=== PATIENT | male | born 1950 | race Caucasian/White ===

== ENCOUNTER 2017-05-07 09:01 | Day surgery (SDC) | payer MEDICARE, OTHER ==
[2017-05-07] MEDS ORDERED: LIDOCAINE 2% MDV (20MG/ML) 20ML VIAL IV ONE (14:00)
[2017-05-07] MEDS ORDERED: PROPOFOL 10 MG/ML VIAL IV ONE (14:00)
[2017-05-07] MEDS ORDERED: MIDAZOLAM HCL 2MG/2ML VIAL IV ONE (14:00)
--- NOTE | 2017-05-11 17:20 | Operative Note ---
DATE OF SERVICE: 05/07/2017. DATE OF SURGERY: 05/07/2017. REQUESTING PROVIDER: Roland Corona MD. SURGEON: Nomi Cui MD. OPERATION: COLONOSCOPY. INDICATION FOR PROCEDURE: This is a 66-year-old male with history of colon polyps, who presented for surveillance colonoscopy. POSTOPERATIVE DIAGNOSES:1. Normal colon. 2. Mildly enlarged prostate gland. SEDATION: Sedation is per Anesthesia. Pulse oximetry was monitored throughout the duration of the procedure to maintain O2 saturation of 90% or greater. Supplemental oxygen was administered via nasal cannula. Cardiac and vital signs were monitored throughout the duration of the procedure and they were stable. PROCEDURE: The procedure of colonoscopy, risks and alternatives to the procedure, including the risks of bleeding and perforation among others, were explained to the patient. He voiced understanding and agrees to have the procedure done. Physical examination was performed and the patient was found stable for sedation. The patient was then placed in the left lateral position and sedation was initiated. Digital rectal exam was performed and showed small external hemorrhoids with no palpable rectal masses. An Olympus [id number] colonoscope was then inserted into the rectum and under direct visualization was advanced to the cecum without difficulty. The ileocecal valve and appendiceal orifice were identified and photographed. The colonic mucosa was carefully examined upon introduction of the colonoscope. There were no lesions noted. The colonoscope was then withdrawn very carefully, re-examining the colonic mucosal surfaces. No lesions were noted. In the rectum, retroflexion maneuver was performed and grade 1 internal hemorrhoids were noted. The colonoscope was then withdrawn, and the procedure was terminated. The patient tolerated the procedure well, without immediate complications. He remained with stable vital signs and was transferred into the recovery room. PLAN AND RECOMMENDATIONS: 1. Patient should be on a high-fiber diet. 2. He is to have a repeat colonoscopy for surveillance in 5 years.Thank you for allowing me to participate in the care of your patient. Nomi Cui MD CC: MD Nomi Luque MD MTDD
== END 2017-05-07 11:05 | disposition home or self-care (01) ==
LOC: HOP 09:01
PROVIDERS: ATTEND Internal Medicine Gastroenterology
DX: Z09 Encounter for follow-up examination after completed treatment for conditions other than malignant neoplasm (principal); K63.5 Polyp of colon; N40.0 Benign prostatic hyperplasia without lower urinary tract symptoms
CPT/HCPCS: 00810; G0121

== ENCOUNTER 2017-08-27 19:58 | Emergency (ER) | payer MEDICARE, OTHER ==
--- NOTE | 2017-08-27 20:15 | Emergency Department Record ---
History of Present Illness - General Chief complaint: Male Urogenital Problem Stated complaint: UNABLE TO URINATE Source: Patient Mode of Arrival: Ambulatory Limitations: No limitations - History of Present Illness Initial comments: 67 yo male presents to ED for evaluation of urinary retention symptoms. Patient reports that he had a agudelo catheter placed 2 days ago for urinary retention symptoms, but had it removed by Dr. Lacey this afternoon in the office. Patient reports that he was able to urinate immediately following removal, however has been unable to urinate in several hours. Patient also reports that he has been taking Bactrim prescribed for a previous UTI. MD Complaint: Other Onset/Timin -: Hour(s) Location: Abdomen Radiation: None Severity: Moderate Quality: Aching Consistency: Constant Improves with: None Worsens with: None Other Reports: Denies other symptoms - Related Data Previous Rx's Medication Instructions Recorded Omeprazole [Prilosec] 20 mg PO DAILY #20 brian. 06/06/16 Allergies Allergy/AdvReac Type Severity Reaction Status Date / Time naproxen [From Naprosyn] AdvReac NAUSEA Verified 06/29/16 15:37 Review of Systems Constitutional: Denies: Chills, Fever, Malaise, Night sweats Eyes: Denies: Eye discharge, Eye pain ENT: Denies: Congestion, Ear pain, Epistaxis Respiratory: Denies: Cough, Dyspnea Cardiovascular: Denies: Chest pain, Dyspnea on exertion Endocrine: Denies: Fatigue, Heat or cold intolerance Gastrointestinal: Reports: Abdominal pain. Denies: Nausea, Vomiting Genitourinary: Reports: Retention. Denies: Testicular pain, Testicular mass Musculoskeletal: Denies: Arthralgia, Back pain, Gout, Joint swelling Skin: Denies: Bruising, Change in color Neurological: Denies: Abnormal gait, Confusion, Headache, Seizure Psychiatric: Denies: Anxiety Hematological/Lymphatic: Denies: Anemia, Blood Clots Past Medical History - SOCIAL HISTORY Smoking Status: Former smoker - RESPIRATORY Hx Respiratory Disorders: Yes Hx Asthma: Yes Hx COPD: Yes Hx Pneumonia: Yes Hx Sleep Apnea: Yes Hx of CPAP: Yes (NIGHTLY USE) - CARDIOVASCULAR Hx Cardio Disorders: Yes Hx Hypertension: Yes - NEURO Hx Neuro Disorders: No - GI Hx GI Disorders: Yes Hx Reflux: Yes Hx of Polyps: Yes (COLON BENIGN) - Hx Genitourinary Disorders: Yes Hx Bladder Problem: Yes (cancer) Hx Prostate Problems: Yes (CANCER) Comment:: DR. LACEY - ENDOCRINE Hx Endocrine Disorders: No - MUSCULOSKELETAL Hx Musculoskeletal Disorders: Yes Hx Arthritis: Yes - PSYCH Hx Psych Problems: Yes Hx Anxiety: Yes Hx Depression: Yes - HEMATOLOGY/ONCOLOGY Hx Hematology/Oncology Disorders: Yes Hx Cancer: Yes (bladder/PROSTATE) Hx Chemotherapy: No Hx Radiation Therapy: No Hx Blood Transfusions: Yes Hx Blood Transfusion Reaction: No Comment:: TURBT Physical Exam - General General Appearance: Alert, Oriented x3, Cooperative, Moderate distress Limitations: No limitations - Head Head exam: Atraumatic, Normocephalic, Normal inspection Head exam detail: negative: Abrasion, Contusion, Modi's sign, General tenderness, Hematoma, Laceration - Eye Eye exam: Normal appearance. negative: Conjunctival injection, Periorbital swelling, Periorbital tenderness, Scleral icterus - ENT Ear exam: negative: Auricular hematoma, Auricular trauma Nasal Exam: negative: Active bleeding, Discharge, Dried blood, Foreign body Mouth exam: negative: Drooling, Laceration, Muffled voice, Tongue elevation - Neck Neck exam: Normal inspection. negative: Meningismus, Tenderness - Respiratory Respiratory exam: Normal lung sounds bilaterally. negative: Rales, Respiratory distress, Rhonchi, Stridor - Cardiovascular Cardiovascular Exam: Regular rate, Normal rhythm, Normal heart sounds - GI/Abdominal GI/Abdominal exam: Soft, Tenderness (TTP to the suprapubic region on examination ). negative: Rebound, Rigid - Rectal Rectal exam: Deferred - exam: Deferred - Extremities Extremities exam: Normal inspection. negative: Calf tenderness, Pedal edema, Tenderness - Back Back exam: Denies: CVA tenderness (R), CVA tenderness (L) - Neurological Neurological exam: Alert, Normal gait, Oriented X3 - Psychiatric Psychiatric exam: Normal affect, Normal mood - Skin Skin exam: Normal color. negative: Abrasion Type of lesion: negative: abrasion Course Vital Signs 08/27/17 20:08 Temperature 99.0 F Pulse Rate [ 66 Pulse Ox Probe] Respiratory 18 Rate Blood Pressure 165/72 [Left Arm] Pulse Ox 100 - Reevaluation(s) Reevaluation #1: 08/27/17 20:44 Agudelo placed by nursing staff, patient reassessed and reports that he is feeling much better. Awaiting UA. Reevaluation #2: 08/27/17 20:55 UA reviewed: > 50 RBCs 3-5 WBCs Few bacteria Patient was instructed to continue Bactrim as prescribed, and the patient appears stable for discharge at this time with his Agudelo and leg bag in place. Disposition Disposition: Discharge Clinical Impression: Urinary retention Disposition: Home, Self-Care Condition: (2) Stable Instructions: Urinary Retention in Men (ED) Additional Instructions: Return to ED if your symptoms worsen or if you have any concerns. Follow-up with Dr. Lacey in 3-5 days as directed. Continue Bactrim as directed. Forms: Patient Portal Access Time of Disposition: 20:56 Quality - Quality Measures Quality Measures: N/A - Blood Pressure Screening Does Patient Have Any of the Following: Active Dx of HTN Blood Pressure Classification: Hypertensive Reading Systolic Measurement: 165 Diastolic Measurement: 72 Screening for High Blood Pressure: Patient Exclusion, Hx of HTN [G9744]
[2017-08-27] MEDS ORDERED: LIDOCAINE UROJECT 10 ML APPL MM ONE (20:43)
[2017-08-27 20:47] LABS: URINE BILIRUBIN NEGATIVE (NEGATIVE); URINE BLOOD LARGE (NEGATIVE); URINE COLOR YELLOW; URINE GLUCOSE (UA) NEGATIVE (NEGATIVE); URINE KETONE NEGATIVE (NEGATIVE); URINE LEUKOCYTE ESTERASE TRACE (NEGATIVE); URINE NITRITE NEGATIVE (NEGATIVE); URINE PROTEIN TRACE (NEGATIVE); URINE UROBILINOGEN 0.2 E.U./dL (0.20 - 1.00)
[2017-08-27 20:48] LABS: URINE APPEARANCE CLOUDY
[2017-08-27 20:53] LABS: URINE RBC >50 (NONE SEEN)
[2017-08-27 20:54] LABS: URINE BACTERIA FEW; URINE EPITHELIAL CELLS 0 - 2 (FEW)
== END 2017-08-27 21:15 | disposition home or self-care (01) ==
LOC: ER 19:58
DX: R33.9 Retention of urine, unspecified (principal); Z85.46 Personal history of malignant neoplasm of prostate
CPT/HCPCS: 81001; 99282

== ENCOUNTER 2017-08-30 20:51 | Emergency (ER) | payer MEDICARE, OTHER ==
--- NOTE | 2017-08-30 21:02 | Emergency Department Record ---
History of Present Illness - General Chief complaint: Male Urogenital Problem Stated complaint: CANNOT URINATE Time Seen by Provider: 08/30/17 20:55 Source: Patient, Family Mode of Arrival: Ambulatory Limitations: No limitations - History of Present Illness Initial comments: 67 yo male returns to the ER after having a agudelo catheter removed today by his urologist and now unable to urinate. He had bladder surgery last week. 4 days ago he had the same issue after agudelo removal in the office by his urologist. No fever. Last voided a small amount 3 hours ago. MD Complaint: Dysuria -: Hour(s) Location: Abdomen Radiation: None Severity: Severe Quality: Aching Consistency: Constant Improves with: None Worsens with: Other (retention) Indwelling catheter (removed today in the doctors office) Reports: Blood in urine, Urinary retention - Related Data Previous Rx's Medication Instructions Recorded Sulfamethoxazole/Trimethoprim 1 each PO BID #6 tablet 08/30/17 [Bactrim Ds Tablet] Allergies Allergy/AdvReac Type Severity Reaction Status Date / Time naproxen [From Naprosyn] AdvReac NAUSEA Verified 06/29/16 15:37 Review of Systems Constitutional: Denies: Chills, Fever, Malaise, Weakness Eyes: Denies: Eye discharge ENT: Denies: Congestion, Throat pain Respiratory: Denies: Cough, Dyspnea Cardiovascular: Denies: Chest pain, Syncope Endocrine: Denies: Fatigue Gastrointestinal: Reports: As per HPI, Abdominal pain. Denies: Diarrhea, Nausea , Vomiting Genitourinary: Reports: As per HPI, Retention. Denies: Frequency Musculoskeletal: Denies: Arthralgia, Back pain, Neck pain Skin: Denies: Bruising, Change in color, Rash Neurological: Denies: Numbness, Weakness Psychiatric: Denies: Anxiety Hematological/Lymphatic: Denies: Blood Clots, Easy bleeding, Easy bruising, Swollen glands Past Medical History - SOCIAL HISTORY Smoking Status: Former smoker - RESPIRATORY Hx Respiratory Disorders: Yes Hx Asthma: Yes Hx COPD: Yes Hx Pneumonia: Yes Hx Sleep Apnea: Yes Hx of CPAP: Yes (NIGHTLY USE) - CARDIOVASCULAR Hx Cardio Disorders: Yes Hx Hypertension: Yes - NEURO Hx Neuro Disorders: No - GI Hx GI Disorders: Yes Hx Reflux: Yes Hx of Polyps: Yes (COLON BENIGN) - Hx Genitourinary Disorders: Yes Hx Bladder Problem: Yes (cancer) Hx Prostate Problems: Yes (CANCER) Comment:: DR. MACEDO - ENDOCRINE Hx Endocrine Disorders: No - MUSCULOSKELETAL Hx Musculoskeletal Disorders: Yes Hx Arthritis: Yes - PSYCH Hx Psych Problems: Yes Hx Anxiety: Yes Hx Depression: Yes - HEMATOLOGY/ONCOLOGY Hx Hematology/Oncology Disorders: Yes Hx Cancer: Yes (bladder/PROSTATE) Hx Chemotherapy: No Hx Radiation Therapy: No Hx Blood Transfusions: Yes Hx Blood Transfusion Reaction: No Comment:: TURBT Physical Exam - General General Appearance: Alert, Oriented x3, Cooperative, No acute distress, Anxious - Head Head exam: Normal inspection - Eye Eye exam: Normal appearance - ENT ENT exam: Normal exam Ear exam: Normal external inspection Nasal Exam: Normal inspection Mouth exam: Normal external inspection - Neck Neck exam: Normal inspection - Respiratory Respiratory exam: Normal lung sounds bilaterally. negative: Respiratory distress - Cardiovascular Cardiovascular Exam: Regular rate, Normal rhythm, Normal heart sounds - GI/Abdominal GI/Abdominal exam: Tenderness (suprapubic) - Rectal Rectal exam: Deferred - exam: Normal inspection. negative: Scrotal swelling - Extremities Extremities exam: Normal inspection - Neurological Neurological exam: Alert, Oriented X3 - Psychiatric Psychiatric exam: negative: Agitated, Anxious - Skin Skin exam: Dry, Intact, Normal color, Warm Course - Reevaluation(s) Reevaluation #1: The EMR was reviewed form 08/27/17 for ED visit for the same clinic concerns 08/30/17 21:01 08/30/17 21:16 The agudelo was placed without difficulty by the nurse. Good drainage He will be DC home to follow up with his urologist on Wednesday Disposition Disposition: Discharge Clinical Impression: Urinary retention Disposition: Home, Self-Care Condition: (1) Good Instructions: Urinary Retention in Men (ED), Agudelo Catheter Placement and Care (ED) Additional Instructions: Call Dr Macedo in the morning for close follow up of your symptoms Return or be seen if you have fever, pain, or concerns about the functioning of your agudelo. Prescriptions: Sulfamethoxazole/Trimethoprim [Bactrim Ds Tablet] 1 each PO BID #6 tablet Forms: Patient Portal Access Time of Disposition: :17 Quality - Quality Measures Quality Measures: N/A - Blood Pressure Screening Does Patient Have Any of the Following: No Blood Pressure Classification: Pre-Hypertensive BP Reading Systolic Measurement: 147 Diastolic Measurement: 88 Screening for High Blood Pressure: < Pre-Hypertensive BP, F/U Documented > [ [id number]] Pre-Hypertensive Follow-up Interventions: Referral to alternative/primary care provider.
[2017-08-30] MEDS: LIDOCAINE UROJECT 10 ML APPL MM ONE (21:15)
[2017-08-30 21:19] LABS: URINE APPEARANCE CLEAR; URINE BILIRUBIN NEGATIVE (NEGATIVE); URINE BLOOD LARGE (NEGATIVE); URINE COLOR YELLOW; URINE GLUCOSE (UA) NEGATIVE (NEGATIVE); URINE KETONE NEGATIVE (NEGATIVE); URINE LEUKOCYTE ESTERASE NEGATIVE (NEGATIVE); URINE NITRITE POSITIVE (NEGATIVE); URINE UROBILINOGEN 0.2 E.U./dL (0.20 - 1.00)
[2017-08-30 21:29] LABS: URINE EPITHELIAL CELLS 0 - 2 (FEW); URINE WBC 0 - 2 (0-2/hpf)
[2017-08-30 21:30] LABS: URINE BACTERIA NONE SEEN
== END 2017-08-30 21:50 | disposition home or self-care (01) ==
LOC: ER 20:51
DX: R33.9 Retention of urine, unspecified (principal); R30.0 Dysuria; Z85.46 Personal history of malignant neoplasm of prostate; Z87.891 Personal history of nicotine dependence
CPT/HCPCS: 81001; 99283

== ENCOUNTER 2018-08-05 10:34 | Emergency (ER) | payer MEDICARE, OTHER ==
[2018-08-05 10:55] LABS: BASO % 0.3 % (0-6); EOS % 3.6 % (0-6); GRAN % 73.6 % (47-80); HEMATOCRIT 38.4 % (42.0-52.0); LYMPH % 15.2 % (16-45); MEAN CORPUSCULAR HEMOGLOBIN 30.8 pg (27-33); MEAN CORPUSCULAR HGB CONC 33.9 g/dl (32-36); MEAN PLATELET VOLUME 9.1 fl (7.4-10.4); MONO % 7.3 % (0-9); PLATELET COUNT 254 K/uL (130-400); RED BLOOD COUNT 4.22 M/uL (4.40-5.70); RED CELL DISTRIBUTION WIDTH 12.9 % (11.5-14.5); WHITE BLOOD COUNT W/O DIFF 7.3 K/uL (4.2-12.2)
--- NOTE | 2018-08-05 10:56 | Emergency Department Record ---
History of Present Illness - General Chief complaint: Rectal bleeding Stated complaint: RECTAL BLEEDING Time Seen by Provider: 08/05/18 10:38 Source: Patient Mode of Arrival: Ambulatory Limitations: No limitations - History of Present Illness Initial comments: 67 yo male presents with blood in the stools for about the last 6 weeks. He denies pain or fever. He has noted over the six weeks that the blood occurs more frequently. No shortness of breath, lightheadedness, chest pain, fevers, sweats, diarrhea, or constipation. He had a normal colon on colonoscopy April of [address] Cui. Internal hemorrhoid was noted. He does occasional strain with bowel movements due to taking pain medication that constipates. The blood is noted on the stool and colors the toilet water red. PCP is Chloe. He is on Aspirin -: Week(s) (6) Radiation: Other (No pain) Quality: Painless Consistency: Intermittent Improves with: None Worsens with: Bowel movement Context: History of GI bleed, Hemorrhoids Associated Symptoms: Denies other symptoms - Related Data Home Medications Medication Instructions Recorded Confirmed Last Taken Aspirin 81 mg PO DAILY 08/05/18 08/05/18 Unknown Methadone HCl 40 mg PO DAILY 08/05/18 08/05/18 Unknown Previous Rx's Medication Instructions Recorded Hydrocortisone Acetate [Anusol-Hc] 25 mg RC DAILY #14 supp.rect 08/05/18 Allergies Allergy/AdvReac Type Severity Reaction Status Date / Time naproxen [From Naprosyn] AdvReac NAUSEA Verified 06/29/16 15:37 Review of Systems Constitutional: Denies: Chills, Fever, Malaise, Weakness Eyes: Denies: Eye discharge ENT: Denies: Congestion, Throat pain Respiratory: Denies: Cough, Hemoptysis Cardiovascular: Denies: Chest pain, Dyspnea on exertion, Palpitations, Syncope Endocrine: Denies: Fatigue Gastrointestinal: Reports: Constipation, Hematochezia. Denies: Abdominal pain, Diarrhea, Hematemesis, Melena, Nausea, Vomiting Genitourinary: Denies: Dysuria, Frequency, Hematuria Musculoskeletal: Denies: Arthralgia, Back pain, Myalgia, Neck pain Skin: Denies: Bruising, Change in color, Rash Neurological: Denies: Headache, Numbness, Weakness Psychiatric: Reports: Anxiety Hematological/Lymphatic: Reports: Blood Clots, Easy bleeding, Easy bruising, Swollen glands Past Medical History - SOCIAL HISTORY Smoking Status: Former smoker - RESPIRATORY Hx Respiratory Disorders: Yes Hx Asthma: Yes Hx COPD: Yes Hx Pneumonia: Yes Hx Sleep Apnea: Yes Hx of CPAP: Yes (NIGHTLY USE) - CARDIOVASCULAR Hx Cardio Disorders: Yes Hx Hypertension: Yes - NEURO Hx Neuro Disorders: No - GI Hx GI Disorders: Yes Hx Reflux: Yes Hx of Polyps: Yes (COLON BENIGN) - Hx Genitourinary Disorders: Yes Hx Bladder Problem: Yes (cancer) Hx Prostate Problems: Yes (CANCER) Comment:: DR. LACEY - ENDOCRINE Hx Endocrine Disorders: No - MUSCULOSKELETAL Hx Musculoskeletal Disorders: Yes Hx Arthritis: Yes - PSYCH Hx Psych Problems: Yes Hx Anxiety: Yes Hx Depression: Yes - HEMATOLOGY/ONCOLOGY Hx Hematology/Oncology Disorders: Yes Hx Cancer: Yes (bladder/PROSTATE) Hx Chemotherapy: No Hx Radiation Therapy: No Hx Blood Transfusions: Yes Hx Blood Transfusion Reaction: No Comment:: TURBT Physical Exam - General General Appearance: Alert, Oriented x3, Cooperative, No acute distress Limitations: No limitations - Head Head exam: Atraumatic, Normal inspection - Eye Eye exam: Normal appearance. negative: Conjunctival injection, Scleral icterus - ENT ENT exam: Normal exam Ear exam: Normal external inspection Nasal Exam: Normal inspection Mouth exam: Normal external inspection - Neck Neck exam: Normal inspection - Respiratory Respiratory exam: Normal lung sounds bilaterally. negative: Respiratory distress - Cardiovascular Cardiovascular Exam: Regular rate, Normal rhythm, Normal heart sounds - GI/Abdominal GI/Abdominal exam: Soft, Normal bowel sounds. negative: Distended, Guarding, Rebound, Rigid, Tenderness - Rectal Rectal exam: Bloody stool (mucous like light red on brownish stool), Heme (+) stool, Normal inspection, Normal rectal tone. negative: Fecal impaction, Hemorrhoids (No external), Tenderness - exam: Deferred - Extremities Extremities exam: Normal inspection, Full ROM, Normal capillary refill. negative: Tenderness - Back Back exam: Reports: Normal inspection, Full ROM. Denies: Muscle spasm, Rash noted, Tenderness - Neurological Neurological exam: Alert, Oriented X3 - Psychiatric Psychiatric exam: Normal affect, Normal mood - Skin Skin exam: Dry, Intact, Normal color, Warm Course - Reevaluation(s) Reevaluation #1: EMR reviewed. Colonoscopy April 2016. Normal colon, internal and external hemorrhoids. 08/05/18 10:42 Hgb is 13.0 Prior last year was 10. Prior before that were around 13. 08/05/18 11:02 No tachycardia or hypotension His bleeding is asymptomatic without pain or fever 08/05/18 11:04 We reviewed the labs with the Hgb at his baseline. I explained his prior scope demonstrated an internal hemorrhoid. This could be the cause. I referred him to GI and called the specialty clinic for close follow up. I explained if worse or any additional symptoms he will need to return or be seen for a recheck. I explained there is not a GI service at [facility] until Wednesday (limited) and next week. 08/05/18 11:23 No acute changes on the coags of CMP He will hold the aspirin until follow up. No history of OK or stroke. 08/05/18 11:58 The BP was discussed. He had not taken the AM HTN medications yet today. Medical Decision Making - Lab Data Result diagrams: 08/05/18 10:51 08/05/18 10:51 Disposition Disposition: Discharge Clinical Impression: GI bleeding Qualifiers: GI bleed type/associated pathology: unspecified gastrointestinal hemorrhage type Qualified Code(s): K92.2 - Gastrointestinal hemorrhage, unspecified Disposition: Home, Self-Care Condition: (1) Good Instructions: Rectal Bleeding (ED) Additional Instructions: Call your family doctor. Call to schedule the next available appointment for a recheck. Return or be seen if your symptoms worsen or if you have any new concerns. Review the final Emergency Record and test results with your doctor on follow up You have been referred to the GI clinic at [facility] for follow up of the blood in the stools Prescriptions: Hydrocortisone Acetate [Anusol-Hc] 25 mg RC DAILY #14 supp.rect Referrals: KELTON CUI [MEDICAL DOCTOR] - [facility] Specialty Clinics [Provider Group] Forms: Patient Portal Access Time of Disposition: 11:08 Quality - Quality Measures Quality Measures: N/A - Blood Pressure Screening Does Patient Have Any of the Following: Active Dx of HTN Blood Pressure Classification: Hypertensive Reading Systolic Measurement: 181 Diastolic Measurement: 91 Screening for High Blood Pressure: Patient Exclusion, Hx of HTN [G9744]
[2018-08-05 11:15] LABS: PARTIAL THROMBOPLASTIN TIME 27.5 SECONDS (24.5-39.1)
[2018-08-05 11:16] LABS: BLOOD UREA NITROGEN 12 mg/dL (8-23); CREATININE 0.7 mg/dL (0.7-1.2); EST GLOMERULAR FILTRATION RATE > 60 mL/min
[2018-08-05 11:17] LABS: TOTAL PROTEIN 7.2 g/dL (6.6-8.7)
[2018-08-05 11:19] LABS: GLUCOSE,RANDOM 118 mg/dL (74-109)
[2018-08-05 11:21] LABS: ALT/SGPT 22 U/L (<41); AST/SGOT 15 U/L (10.0-50.0)
[2018-08-05 11:22] LABS: ALB/GLOB RATIO 1.8 (1.1-1.8); ALBUMIN 4.6 g/dL (4.0-5.0); ALKALINE PHOSPHATASE 87 U/L (40-129)
== END 2018-08-05 11:37 | disposition home or self-care (01) ==
LOC: ER 10:34
DX: K92.1 Melena (principal); J44.9 Chronic obstructive pulmonary disease, unspecified; I10 Essential (primary) hypertension; Z87.891 Personal history of nicotine dependence
CPT/HCPCS: 80053; 85025; 85610; 85730; 99283; 99284